=== PATIENT | male | born 1985 | race Caucasian/White ===

== ENCOUNTER 2017-08-24 15:37 | Emergency (ER) | payer MEDICAID ==
[2017-08-24 15:48] VITALS: TEMP 98.2
[2017-08-24] MEDS ORDERED: HYDROmorphONE/DILAUDID 1 MG/ML INJ ONE (15:50)
[2017-08-24] MEDS ORDERED: HYDROmorphONE/DILAUDID 1 MG/ML INJ IVP ONE (15:52)
[2017-08-24] MEDS ORDERED: fentaNYL 100 MCG/2 ML INJ IVP ONE (16:10)
--- NOTE | 2017-08-24 16:10 | EDPHY ---
General - History Smoking Status: Never smoked Time Seen by Provider: 08/24/17 15:44 Narrative: CHIEF COMPLAINT: Shoulder dislocation HISTORY OF PRESENT ILLNESS: The patient presents with complaints of right shoulder dislocation. He presents by EMS and is seen at time arrival. He says that he got pulled backwards by a dog with dislocation 2 hr ago. Severe pain in the right shoulder. He has dislocated the shoulder in the past. He was seen at [facility] but never followed up with Orthopedics. No numbness or tingling. No weakness. No injury elsewhere. No other associated complaints or modifying factors. REVIEW OF SYSTEMS: Ten systems reviewed and are negative unless otherwise noted in the HPI PCP: None SPECIALISTS: None PAST MEDICAL HISTORY: Orthopedic injuries PAST SURGICAL HISTORY: None FAMILY HISTORY: Noncontributory EXAMINATION General Appearance: Alert, no distress Head: normocephalic, atraumatic Eyes: Pupils equal and round Respiratory: No retractions or distress Cardiovascular: Regular rate. Symmetric radial pulses 2+ Neurological: A&O, nonfocal, sensory and strength symmetric. Skin: Warm and dry, no rash no petechiae or purpura. No erythema Extremities: Obvious step-off on the right shoulder with tenderness. Range of motion un testable due to pain. Neurovascular intact distal to the shoulder pain. Psychiatric: Mood and affect normal DIFFERENTIAL DIAGNOSES: Including but not limited to shoulder dislocation, fracture, sprain, strain MDM: 3:50 p.m. Right shoulder dislocation with injury. Neurovascular intact. I will attempt reduction at bedside. 4:00 p.m. Unable to reduce the shoulder as I cannot get the shoulder relax will do so. Will need procedural sedation to do so. 4:35 p.m. Right shoulder dislocation with closed reduction performed with procedural sedation by Dr. Voss. Tolerated well. No complication. Post reduction film shows good reduction with no obvious fracture, without the aid of the radiologist interpretation. 5:00 p.m. X-ray has been read as negative by radiologist. I have re-evaluated the patient. He is awake and alert no acute distress. Neurovascular intact. Sling in place. Discharged home with pain medication, ice, anti- inflammatories. Mandatory follow up with Orthopedics for definitive care. ED precautions as discussed. He is comfortable this plan and discharged home stable condition PROCEDURE: Closed reduction of shoulder Consent: Verbal Location: Right shoulder Anesthesia: 1% lidocaine plain with procedural sedation administered by Dr. Voss Procedure: After verbal consent and procedural sedation by Dr. Voss, traction counter traction performed with successful anatomic reduction by visualization. He is neuro intact pre and postprocedure. Sling and swath applied while still under procedural sedation. Complications: None Post-reduction film: Good reduction with no obvious fracture by my interpretation. SUPERVISION: Patient was evaluated and examined in conjunction with my secondary supervising physician as documented. We have both examined the patient. (Francis Nguyen) Medical Decision Making: I also saw the patient in the emergency department. I reviewed the history of his dog being on a lesion pulling his arm backwards behind him dislocating his shoulder. He has a history of previous shoulder dislocation. Exam shows obvious right anterior shoulder dislocation Procedure: Conscious sedation. Indication: Shoulder reduction I was asked by CATHY Nguyen to perform sedation for shoulder reduction. The patient is an appropriate candidate to tolerate procedural sedation. The patient's vital signs and mental status are appropriate. The risks, benefits and alternatives of the sedation were discussed with the patient. The patient is ASA classification 1. The patient's Mallampati airway score was 1 and the patient did meet the 3-3-2 airway measurements. A time out was completed. The patient was sedated with fentanyl 100 mcg IV, propofol 100 mg IV. The patient was monitored with continuous pulse oximetry, campus manager and end tidal CO2. There were no complications and no significant hypoxemia. I performed sedation The total time I spent at the bedside during the procedural sedation was 20 minutes. The patient was examined after the procedural sedation and has returned to their pre-sedation baseline with normal vital signs and a normal examination. (Eliseo Voss) - Objective Vital Signs: Initial Vital Signs Temperature (C) 98.2 F 08/24/17 15:37 Heart Rate 48 L 08/24/17 15:37 Respiratory Rate 16 08/24/17 15:37 Blood Pressure 154/89 H 08/24/17 15:37 O2 Sat (%) 98 08/24/17 15:37 O2 Delivery Mode Room Air O2 (L/minute) 10 Allergies/Adverse Reactions: No Known Allergies Allergy (Unverified 08/24/17 15:46) Home Medications: Medication Instructions Recorded oxyCODONE HCL/ACETAMINOPHEN 1 each PO Q4-6PRN PRN #13 tablet 02/08/18 [Percocet 5-325 mg Tablet] Medications Given: Discontinued Medications Fentanyl (Sublimaze) 100 mcg IVP EDNOW ONE Stop: 08/24/17 16:11 Last Admin: 08/24/17 16:18 Dose: 100 mcg Hydromorphone HCl (Dilaudid) 0.5 mg IVP EDNOW ONE Stop: 08/24/17 15:53 Last Admin: 08/24/17 15:53 Dose: 0.5 mg Propofol (Diprivan) 150 mg IVP EDNOW ONE Stop: 08/24/17 16:36 Last Admin: 08/24/17 16:37 Dose: 150 mg Departure - Departure Disposition: Home, Routine, Self-Care Clinical Impression: Shoulder dislocation Qualifiers: Encounter type: initial encounter Laterality: right Qualified Code(s): S43.004A - Unspecified dislocation of right shoulder joint, initial encounter Condition: Good Instructions: Shoulder Dislocation (ED) Additional Instructions: 1. Shoulder precautions as discussed until seen by orthopedist 2. Medication as prescribed as needed 3. ED precautions as discussed Referrals: Yony Huizar MD [Medical Doctor] - As per Instructions Stand Alone Forms: Work Excuse Prescriptions: oxyCODONE HCL/ACETAMINOPHEN [Percocet 5-325 mg Tablet] 1 each PO Q4-6PRN PRN # 13 tablet PRN Reason: Pain, Breakthrough
[2017-08-24] MEDS ORDERED: PROPOFOL 200 MG/20 ML VIAL ONE (16:21)
[2017-08-24] MEDS ORDERED: PROPOFOL 200 MG/20 ML VIAL IVP ONE (16:35)
[2017-08-24 16:39] VITALS: RESP 16
[2017-08-24 17:17] VITALS: BP 122/82; PULSE 82; O2SAT 93
== END 2017-08-24 17:12 | disposition home or self-care (01) ==
PROC: 0RSJXZZ Reposition Right Shoulder Joint, External Approach (ICD-10-PCS; principal; 2017-08-24)
DX: S43.004A Unspecified dislocation of right shoulder joint, initial encounter (principal); W54.8XXA Other contact with dog, initial encounter
CPT/HCPCS: 96374; J1170; J2704

== ENCOUNTER → 2018-04-14 | Outpatient (CLI) | payer MEDICAID | LOC: FIMAGING 10:31 | PROVIDERS: ATTEND Orthopaedic Surgery | DX: M75.91 Shoulder lesion, unspecified, right shoulder (principal); M19.011 Primary osteoarthritis, right shoulder; M24.811 Other specific joint derangements of right shoulder, not elsewhere classified; G89.29 Other chronic pain ==

== ENCOUNTER 2019-01-04 13:09 | Emergency (ER) | payer MEDICAID | END 2019-01-04 14:47 | disposition home or self-care (01) ==